=== PATIENT | male | born 1990 | race Caucasian/White ===

== ENCOUNTER → 2022-06-04 | Outpatient (CLI) | payer SELFPAY ==
[2022-06-04 12:13] LABS: SEMEN VOLUME 4.5 ML (1.5-5.0)
== END ==
LOC: LAB 10:57
PROVIDERS: ATTEND Physician Assistant
DX: Z31.9 Encounter for procreative management, unspecified (principal); N46.9 Male infertility, unspecified
CPT/HCPCS: 89320

== ENCOUNTER → 2022-07-09 | Outpatient (CLI) | payer SELFPAY ==
[2022-07-09 13:46] LABS: SEMEN VOLUME 3.5 ML (1.5-5.0)
== END ==
LOC: LAB 12:38
PROVIDERS: ATTEND Nurse Practitioner Family
DX: N46.9 Male infertility, unspecified (principal)
CPT/HCPCS: 89320